=== PATIENT | female | born 1965 | race Caucasian/White ===

== ENCOUNTER 2017-09-19 08:17 | Emergency (ER) | payer BC ==
[~2017-09-19] VITALS: Ht 157.5 cm; Wt 67.1 kg
[2017-09-19 08:23] VITALS: BP_SYST 123
--- NOTE | 2017-09-19 08:31 | NUR ---
Placed in room 6. Placed on pulp roller, blood pressure machine and pulse oximeter. To gown for exam. Side rails up. Report given to Asif LYNN.
--- NOTE | 2017-09-19 08:40 | NUR ---
PT BIB FAMILY C/O FEVER SINCE LAST NIGHT WORSENING THIS AM. PT H/O LIVER AND KIDNEY TX YEAR IN JUNE. PT REPORTS NO S/S OF REJECTION AFTER SX. PT HAD NO COMPLAINTS PRIOR TO EPISODE OF FEVER AND FLANK PAIN. PT AMBULATES STEADY GAIT W/O ASSIST.
[2017-09-19] MEDS ORDERED: ACETAMINOPHEN 500 MG TABLET PO ONE (08:45)
[2017-09-19] MEDS ORDERED: PIPERACILLIN/TAZO 3.38 GM in NS 50 ML IV ONE (08:45)
--- NOTE | 2017-09-19 08:50 | NUR ---
URINE SPECIMEN COLLECTED AND SENT.
[2017-09-19] MEDS ORDERED: PIPERACILLIN/TAZOBACTAM 3.375 GM/VIAL (ZOSYN) IV ONE (09:03)
--- NOTE | 2017-09-19 09:15 | NUR ---
ER at bedside examining patient.
[2017-09-19 09:19] LABS: BASOPHILS # (AUTO) 0.1 K/uL (0.0-0.2); BASOPHILS % (AUTO) 0.6 % (0.0-2.0); EOSINOPHILS % (AUTO) 0.2 % (0.0-4.0); HEMATOCRIT 41.6 % (36-48); LYMPHOCYTES # (AUTO) 0.7 K/uL (1.0-5.5); LYMPHOCYTES % (AUTO) 6.7 % (20.5-51.5); MEAN CORPUSCULAR HEMOGLOBIN 29 pg (27-31); MEAN CORPUSCULAR HGB CONC 34 % (32-36); MEAN CORPUSCULAR VOLUME 85 fL (79.0-98.0); NEUTROPHILS # (AUTO) 8.3 K/uL (1.8-7.7); NEUTROPHILS % (AUTO) 82.5 % (40.0-70.0); PLATELET COUNT (AUTO) 183 K/uL (130-430); RED BLOOD CELL COUNT(AUTO) 4.89 MIL/uL (4.2-6.2); RED CELL DISTRIBUTION WIDTH 12.4 % (9.0-15.0); WHITE BLOOD COUNT (AUTO) 10.1 K/uL (4.8-10.8)
[2017-09-19 09:21] LABS: CREATININE 0.91 mg/dL (0.55-1.30); POTASSIUM 4.1 mmol/L (3.5-5.1)
[2017-09-19 09:26] LABS: ALBUMIN 3.5 g/dL (3.4-4.8); TOTAL BILIRUBIN 1.3 mg/dL (0.0-1.0)
[2017-09-19 09:37] LABS: INR 1.1 (0.8-1.2); PROTHROMBIN TIME 10.8 SECS (9.5-12.5)
[2017-09-19 09:38] LABS: BILIRUBIN,URINE NEGATIVE (NEGATIVE); BLOOD, URINE 3+ (NEGATIVE); CLARITY/URINE HAZY (CLEAR); COLOR,URINE YELLOW (YELLOW); GLUCOSE,URINE NEGATIVE (NEGATIVE); KETONES,URINE NEGATIVE (NEGATIVE); LEUKOCYTE ESTERASE ,URINE 2+ (NEGATIVE); NITRITE, URINE NEGATIVE (NEGATIVE); PROTEIN URINE 2+ (NEGATIVE); UROBILINOGEN,URINE 0.2 (0.2-1.0)
[2017-09-19 09:54] LABS: BACTERIA,URINE MODERATE /HPF (None Seen); MUCUS,URINE 1+ /LPF (None Seen); RBC,URINE 20-50 /HPF (0-3); WBC,URINE 50-80 /HPF (0-3)
--- NOTE | 2017-09-19 10:15 | NUR ---
PT MEDICATED TOLERATED WELL. CONTINUIN TO MONITOR.
--- NOTE | 2017-09-19 11:30 | NUR ---
PT REMAINS STABLE NO ACUTE DISTRESS NOTED. NO C/O PAIN AT THIS TIME.
[2017-09-19 13:00] VITALS: BP_SYST 101
--- NOTE | 2017-09-19 13:00 | NUR ---
Patient given written and verbal discharge instructions and verbalizes understanding. ER MD discussed with patient the results and treatment provided. Patient in stable condition. ID arm band removed. IV catheter removed intact and dressing applied, no active bleeding. Rx of BACTRIM given. Patient educated on pain management and to follow up with PMD. Pain Scale 0. Opportunity for questions provided and answered. Medication side effect fact sheet provided.
--- NOTE | 2017-09-21 11:41 | NUR ---
Spoke with Dr Ovalle who states pt was given zosyn in ER, that should clear infection and does not need to change prescription.
== END 2017-09-19 13:00 | disposition home or self-care (01) ==
LOC: SED 08:17
DX: N39.0 Urinary tract infection, site not specified (principal); Z87.448 Personal history of other diseases of urinary system
CPT/HCPCS: 36415; 71045; 80053; 81000; 83605; 83690; 85025; 85610; 87040; 87086; 87186; 93005; 96365; 99285; J2543; J7030